=== PATIENT | male | born 1990 | race Caucasian/White ===

== ENCOUNTER 2017-04-21 06:45 | Emergency (ER) | payer MEDICAID, OTHER ==
[~2017-04-21] VITALS: Ht 177.8 cm; Wt 79.4 kg
[2017-04-21 06:48] VITALS: BP 135/89
[2017-04-21] MEDS ORDERED: KETOROLAC TROMETH 60MG/2ML VIAL IM ONE (08:00)
== END 2017-04-21 08:48 | disposition home or self-care (01) ==
LOC: ER 06:45
DX: S29.011A Strain of muscle and tendon of front wall of thorax, initial encounter (principal); Z88.1 Allergy status to other antibiotic agents; X50.0XXA Overexertion from strenuous movement or load, initial encounter; Y93.89 Activity, other specified; Y92.89 Other specified places as the place of occurrence of the external cause; Y99.8 Other external cause status
CPT/HCPCS: 71020; 96372; 99284; J1885